=== PATIENT | male | born 1970 | race Caucasian/White ===

== ENCOUNTER → 2019-06-14 | Day surgery (SDC) | payer BC ==
[~2019-06-14] MED LIST: FENTANYL CITRATE/PF 100MCG/2 ML INJ ONE; LIDOCAINE HCL 2% LOCAL INJ 5 ML SDV VIAL INJ ONE; MIDAZOLAM HCL 2 MG/2 ML VIAL ONE; OMEPRAZOLE40 MG PO; PROPOFOL IV EMULSION 10 MG/ML 20 ML VIAL ONE
[2019-06-14 11:00] VITALS: BP 106/86
--- NOTE | 2019-06-14 11:51 | Operative Report ---
DATE OF PROCEDURE: 06/14/2019 SURGEON: Tyree Soto MD PROCEDURE PERFORMED: Colonoscopy. PREOPERATIVE DIAGNOSIS: Proctalgia. POSTOPERATIVE DIAGNOSES: Colon polyps, diverticulosis, normal anorectal region. PREOPERATIVE MEDICATIONS: Consisted of MAC sedation. PROCEDURE IN DETAIL: Using [employer] video colonoscope was inserted in the patient's rectum and advanced without difficulty to the level of the cecum. As we withdrew the scope back into the ascending colon, a 1 cm sized benign polyp was seen and removed with the electrical snare cautery as we get the colonoscope back down to the descending colon, began taking up scattered diverticula, which extended down into the sigmoid colon. No evidence of diverticulitis. In the sigmoid colon was a 4 mm size sessile polyp, which was removed with hot biopsy forceps. The colonoscope was withdrawn back into the rectum in the anal canal. Rectum was normal. There was no evidence of any fissures. No evidence of any hemorrhoids. The colonoscope was withdrawn from the patient's rectum and the procedure was ended. Tyree Soto MD SAF/MODL /[id number]
== END | disposition home or self-care (01) ==
LOC: OR 07:50
PROVIDERS: ATTEND Internal Medicine Gastroenterology
DX: K62.89 Other specified diseases of anus and rectum (principal); K63.5 Polyp of colon; K57.30 Diverticulosis of large intestine without perforation or abscess without bleeding; K21.9 Gastro-esophageal reflux disease without esophagitis; K60.2 Anal fissure, unspecified; K59.04 Chronic idiopathic constipation; K64.9 Unspecified hemorrhoids; F17.210 Nicotine dependence, cigarettes, uncomplicated; Z01.810 Encounter for preprocedural cardiovascular examination
CPT/HCPCS: 45384; 45385; 93005; J2001; J2250; J2704; J3010; 45378

== ENCOUNTER → 2020-02-15 | Day surgery (SDC) | payer BC, OTHER ==
[2020-02-11 14:06] LABS: BASOPHILS # (AUTO) 0.1 (0.0-0.1); EOSINOPHILS # (AUTO) 0.2 (0.0-0.4); EOSINOPHILS % 1.7 % (0.0-6.0); HEMATOCRIT 46.2 % (38.2-49.6); HEMOGLOBIN 15.2 g/dL (14.0-18.0); LYMPHOCYTES # (AUTO) 3.1 (1.0-3.2); LYMPHOCYTES % 30.4 % (18.0-39.1); MEAN CORPUSCULAR HEMOGLOBIN 30.4 pg (28-32); MEAN CORPUSCULAR HGB CONC 32.9 g/dL (31-35); MEAN CORPUSCULAR VOLUME 92.4 fL (81-99); MONOCYTES # (AUTO) 0.8 (0.2-0.8); MONOCYTES % 7.7 % (4.4-11.3); NEUTROPHILS # (AUTO) 6.1 (2.1-6.9); NEUTROPHILS % 58.7 % (38.7-80.0); PLATELET COUNT 366 x10e3/uL (140-360); RED CELL DISTRIBUTION WIDTH 12.6 % (11.7-14.4)
--- NOTE | 2020-02-11 14:12 | Diagnostic Imaging Report ---
EXAMINATION: CHEST 2 VIEWS INDICATION: Pre-operative COMPARISON: None FINDINGS: LINES/TUBES:None LUNGS:The lungs are well-inflated. No focal consolidation or pulmonary edema. PLEURA:No pleural effusion or pneumothorax. MEDIASTINUM:The cardiomediastinal silhouette appears normal in size and shape. BONES/SOFT TISSUES:No acute osseous injury. ABDOMEN:No free air under the diaphragm. IMPRESSION: No focal pneumonia or pulmonary edema. Signed by: Maikel Farley MD on 02/11/2020 2:09 PM
[2020-02-11 14:24] LABS: ALANINE AMINOTRANSFERASE 16 IU/L (0-55); ALBUMIN 3.8 g/dL (3.5-5.0); ALBUMIN/GLOBULIN RATIO 1.2 (0.8-2.0); ALKALINE PHOSPHATASE 50 IU/L (40-150); ANION GAP 11.5 mmol/L (8-16); BLOOD UREA NITROGEN 8 mg/dL (7-26); BUN/CREATININE RATIO 10 (6-25); CALCIUM 9.3 mg/dL (8.4-10.2); CARBON DIOXIDE 31 mmol/L (22-29); CHLORIDE 104 mmol/L (98-107); CREATININE, SERUM 0.84 mg/dL (0.72-1.25); EST GLOMERULAR FILTRATION RATE > 60 ML/MIN (60-); GLUCOSE 96 mg/dL (74-118); POTASSIUM 4.5 mmol/L (3.5-5.1); SODIUM 142 mmol/L (136-145)
[~2020-02-15] MED LIST changes: +ACETAMINOPHEN 1000 MG/100 ML 100 ML IV ONE; +ACETAMINOPHEN 1000 MG/100 ML IV ONE; +BUPIVACAINE HCL 0.5% INJ 30 ML VIAL INJ ONE; +CEFAZOLIN SOD 1 GM/NS 50ML 100 ML IV ONE; +CIPRO500 MG PO; +DESFLURANE 240 ML BTL INH ONE; +DEXAMETHASONE SOD PHOS INJ 4 MG/ML VIAL ONE; +EPHEDRINE SULFATE INJ 50 MG/ML VIAL ONE; +GLYCOPYRROLATE INJ 0.2 MG/ML VIAL ONE; +KETOROLAC TROMETHAMINE 30 MG/ML VIAL ONE; -MIDAZOLAM HCL 2 MG/2 ML VIAL ONE; +NEOSTIGMINE 1 MG/ML 10ML VIAL ONE; +ONDANSETRON HCL INJ 2MG/ML 2ML 2 MG/ML VIAL ONE; +ROCURONIUM BROMIDE 10 MG/ML 5ML VIAL IV ONE
[2020-02-15 14:50] VITALS: BP 106/61
--- NOTE | 2020-02-15 18:23 | Operative Report ---
DATE OF PROCEDURE: 02/15/2020 SURGEON: Kaushal Walsh MD PREOPERATIVE DIAGNOSIS: Bilateral inguinal hernia. POSTOPERATIVE DIAGNOSIS: Bilateral inguinal hernia. OPERATIVE PROCEDURE: Laparoscopic bilateral inguinal hernia repair with mesh. ANESTHESIA: General; Dr. Draper. INDICATION: A 50-year-old male with bilateral inguinal hernia, who consented for repair. Attendant risks discussed. PROCEDURE FINDINGS: Bilateral direct inguinal hernia. DESCRIPTION OF PROCEDURE: The patient was brought to the OR, intubated. The abdomen was prepped and draped in sterile fashion. Infraumbilical incision was made and 11 mm port inserted. Insufflation then began under direct vision, other port site placed in the lateral border of the rectus muscle at the level of the umbilicus. Laparoscopic examination revealed bilateral direct inguinal hernia. We then proceeded to take down the peritoneal flap on the right side starting at the iliac crest laterally and progressing towards the medial umbilical ligament staying 1 cm above the internal ring. The hernia sac was dissected off the abdominal wall using blunt dissection, exposing the direct and indirect inguinal hernias. At this point, a right medium size 3D polypropylene mesh was deployed into the preperitoneal space and anchored to the abdominal wall with absorbable tacks. The peritoneal flap was closed with Ligaclips. In a similar fashion, a peritoneal flap was raised on the left side from the iliac crest laterally to the medial umbilical ligament, medially staying above the internal ring. The hernia sac and peritoneal flap are raised in a caudad direction, it from the abdominal wall and the spermatic cord to the level of iliac crest. A left-sided 3D polypropylene mesh was similarly deployed and anchored to the abdominal wall with absorbable stacked tacks, staying above the iliopubic tract. Ligaclips was used to close the peritoneal flap. Hemostasis achieved. Ports removed under direct vision. Fascia closure 0 Vicryl. Skin was closed with subcuticular stitch. The patient was extubated and transported to recovery room. BLOOD LOSS: 5 mL. Kaushal Walsh MD DNL/MODL /[id number]
== END | disposition home or self-care (01) ==
LOC: OR 10:07
PROVIDERS: ATTEND Surgery
DX: K40.20 Bilateral inguinal hernia, without obstruction or gangrene, not specified as recurrent (principal); J44.9 Chronic obstructive pulmonary disease, unspecified; K21.9 Gastro-esophageal reflux disease without esophagitis; R00.1 Bradycardia, unspecified; F17.210 Nicotine dependence, cigarettes, uncomplicated; Z01.810 Encounter for preprocedural cardiovascular examination; Z01.812 Encounter for preprocedural laboratory examination; Z01.818 Encounter for other preprocedural examination; Z11.59 Encounter for screening for other viral diseases
CPT/HCPCS: 36415; 49650; 71046; 80053; 85025; 93005; C1781 ×2; J0131; J0690; J1100; J1885; J2001; J2405; J2704; J2710; J3010; U0002

== ENCOUNTER → 2020-03-18 | Outpatient (CLI) | payer BC, OTHER ==
[~2020-03-18] MED LIST changes: -ACETAMINOPHEN 1000 MG/100 ML 100 ML IV ONE; -ACETAMINOPHEN 1000 MG/100 ML IV ONE; -BUPIVACAINE HCL 0.5% INJ 30 ML VIAL INJ ONE; -CEFAZOLIN SOD 1 GM/NS 50ML 100 ML IV ONE; -DESFLURANE 240 ML BTL INH ONE; -DEXAMETHASONE SOD PHOS INJ 4 MG/ML VIAL ONE; +DIATRIZOATE MEGL/DIATRIZOA SOD 30 ML BTL PO ONE; -EPHEDRINE SULFATE INJ 50 MG/ML VIAL ONE; -FENTANYL CITRATE/PF 100MCG/2 ML INJ ONE; -GLYCOPYRROLATE INJ 0.2 MG/ML VIAL ONE; +IOPAMIDOL 370 MG/ML 200 ML INFUS..BTL INJ ONE; -KETOROLAC TROMETHAMINE 30 MG/ML VIAL ONE; -LIDOCAINE HCL 2% LOCAL INJ 5 ML SDV VIAL INJ ONE; -NEOSTIGMINE 1 MG/ML 10ML VIAL ONE; -ONDANSETRON HCL INJ 2MG/ML 2ML 2 MG/ML VIAL ONE; -PROPOFOL IV EMULSION 10 MG/ML 20 ML VIAL ONE; -ROCURONIUM BROMIDE 10 MG/ML 5ML VIAL IV ONE; +SODIUM CHLORIDE 0.9% 50ML 50 ML ONE
--- NOTE | 2020-03-18 16:12 | Diagnostic Imaging Report ---
EXAM: CT Pelvis WITH intravenous contrast INDICATION: Perirectal abscess COMPARISON: None. TECHNIQUE: Pelvis were scanned utilizing a multidetector helical scanner from the iliac crest to the pubic symphysis following administration of IV contrast. Coronal and sagittal reformations were obtained. Routine protocol was performed. IV CONTRAST: 100cc Isovue 370. ORAL CONTRAST: Gastrografin RADIATION DOSE: Total DLP: 126 mGy*cm COMPLICATIONS: None FINDINGS: LINES and TUBES: None. GI TRACT: Oral contrast opacifies the colon. No abnormal bowel thickening. No bowel obstruction. No CT evidence of perirectal abscess. Reported history of appendectomy. PELVIC ORGANS/BLADDER: Unremarkable. LYMPH NODES: No lymphadenopathy. VESSELS: Mild atherosclerotic calcifications of the nonaneurysmal distal abdominal aorta and major branches. PERITONEUM / RETROPERITONEUM: No free air or fluid. BONES: Unremarkable. SOFT TISSUES: Postoperative findings of bilateral inguinal hernia repair. IMPRESSION: No CT evidence of perirectal abscess. Signed by: Maikel Farley MD on 03/18/2020 4:08 PM
== END ==
LOC: CT 13:33
PROVIDERS: ATTEND Internal Medicine Gastroenterology
DX: K61.1 Rectal abscess (principal)
CPT/HCPCS: 72193; Q9967

== ENCOUNTER → 2020-04-18 | Day surgery (SDC) | payer BC, OTHER ==
[~2020-04-18] MED LIST changes: -DIATRIZOATE MEGL/DIATRIZOA SOD 30 ML BTL PO ONE; +FENTANYL CITRATE/PF 100MCG/2 ML INJ ONE; +FINASTERIDE5 MG PO; -IOPAMIDOL 370 MG/ML 200 ML INFUS..BTL INJ ONE; +LIDOCAINE HCL 2% LOCAL INJ 5 ML SDV VIAL INJ ONE; +METOCLOPRAMIDE HCL 10 MG/2ML VIAL ONE; +MIDAZOLAM HCL 2 MG/2 ML VIAL ONE; +PANTOPRAZOLE 40 MG 10ML VIAL ONE; +PANTOPRAZOLE SO40 MG PO; +PROPOFOL IV EMULSION 10 MG/ML 20 ML VIAL ONE
[2020-04-18 09:00] VITALS: BP 104/79
--- NOTE | 2020-04-18 11:39 | Operative Report ---
DATE OF PROCEDURE: 04/18/2020 SURGEON: Leroy Watson MD PROCEDURE: An EGD with polypectomy and biopsies and esophageal dilatation. INDICATIONS FOR EGD: Upper abdominal pain, nausea, history of black stools, and dysphagia. MEDICATIONS: The patient was done under MAC. Please see anesthesiologist's note. PROCEDURE IN DETAIL: With the patient in left lateral decubitus position, the flexible fiberoptic Olympus gastroscope was introduced into the esophagus under direct visualization without any difficulty. There was some patchy erythema noted in distal esophagus. Esophagus was then dilated to size 52-[place] Mark. The scope was then advanced with ease into the stomach. Mucosa overlying the antrum and the body revealed some diffuse erythema and mild to moderate edema, and biopsies were obtained, sent to stain for H. pylori. A minute hyperplastic-appearing polyp was noted in the proximal body of the stomach and that was partially excised with the cold biopsy forceps. The pylorus was of normal contour and shape, it was intubated with ease and the scope was advanced all the way to the second portion of the duodenum. Biopsies were obtained from the proximal second portion and the duodenal bulb to rule out sprue. The scope was then withdrawn back into the stomach and retroflexed and mucosa overlying the fundus and the cardia appeared to be within normal limits. The scope was then straightened out. It was subsequently withdrawn. The patient tolerated the procedure well. IMPRESSION: 1. Distal esophagitis, mild. 2. Esophagus dilated to size 52-[place] Mark. 3. Gastritis, biopsied. Biopsies sent to stain for H pylori. 4. Gastric polyp, body, partially excised with the cold biopsy forceps. 5. Rule out sprue. PLAN: Follow up histology. Continue Protonix 40 mg one p.o. q.a.m. a.c. Leroy Watson MD [facility] [place] /[id number]
== END | disposition home or self-care (01) ==
LOC: OR 05:47
PROVIDERS: ATTEND Internal Medicine Gastroenterology
DX: K29.70 Gastritis, unspecified, without bleeding (principal); K20.9 Esophagitis, unspecified; K31.7 Polyp of stomach and duodenum; K21.9 Gastro-esophageal reflux disease without esophagitis; R03.0 Elevated blood-pressure reading, without diagnosis of hypertension; F17.210 Nicotine dependence, cigarettes, uncomplicated; Z01.812 Encounter for preprocedural laboratory examination; Z11.59 Encounter for screening for other viral diseases; Z80.0 Family history of malignant neoplasm of digestive organs
CPT/HCPCS: 43239; 43450; C9113; J2001; J2250; J2704; J2765; J3010; U0002

== ENCOUNTER → 2021-03-13 | Outpatient (CLI) | payer BC ==
[~2021-03-13] MED LIST changes: -FENTANYL CITRATE/PF 100MCG/2 ML INJ ONE; -LIDOCAINE HCL 2% LOCAL INJ 5 ML SDV VIAL INJ ONE; -METOCLOPRAMIDE HCL 10 MG/2ML VIAL ONE; -MIDAZOLAM HCL 2 MG/2 ML VIAL ONE; -PANTOPRAZOLE 40 MG 10ML VIAL ONE; -PROPOFOL IV EMULSION 10 MG/ML 20 ML VIAL ONE; -SODIUM CHLORIDE 0.9% 50ML 50 ML ONE
== END ==
LOC: US 14:36
PROVIDERS: ATTEND Internal Medicine Gastroenterology
DX: R10.11 Right upper quadrant pain (principal); N28.1 Cyst of kidney, acquired
CPT/HCPCS: 76705

== ENCOUNTER 2024-03-01 05:37 | Observation (INO) | payer BC, OTHER ==
[2024-02-28 15:50] LABS: BASOPHILS # (AUTO) 0.1 (0.0-0.1); BASOPHILS % 0.5 % (0.0-1.0); EOSINOPHILS # (AUTO) 0.2 (0.0-0.4); EOSINOPHILS % 1.9 % (0.0-6.0); HEMATOCRIT 50.6 % (38.2-49.6); HEMOGLOBIN 16.4 g/dL (14.0-18.0); LYMPHOCYTES # (AUTO) 3.9 (1.0-3.2); LYMPHOCYTES % 34.7 % (18.0-39.1); MEAN CORPUSCULAR HEMOGLOBIN 30.8 pg (28-32); MEAN CORPUSCULAR HGB CONC 32.4 g/dL (31-35); MEAN CORPUSCULAR VOLUME 94.9 fL (81-99); MONOCYTES % 9.2 % (4.4-11.3); NEUTROPHILS % 53.1 % (38.7-80.0); PLATELET COUNT 431 x10e3/uL (140-360); RED BLOOD COUNT 5.33 x10e6/uL (4.3-5.7); RED CELL DISTRIBUTION WIDTH 13.1 % (11.7-14.4); WHITE BLOOD COUNT 11.32 x10e3/uL (4.8-10.8)
[2024-02-28 16:03] LABS: INR 0.82; PROTHROMBIN TIME 11.9 seconds (11.9-14.5)
[2024-02-28 16:04] LABS: PARTIAL THROMBOPLASTIN TIME 28.6 seconds (23.8-35.5)
[2024-02-28 16:08] LABS: ANION GAP 14.1 mmol/L (8-16); CALCIUM 9.3 mg/dL (8.4-10.2); CREATININE, SERUM 1.13 mg/dL (0.72-1.25); POTASSIUM 4.1 mmol/L (3.5-5.1)
[~2024-03-01 05:37] MED LIST changes: +CYCLOBENZAPRINE10 MG PO; +HYDROCODON-ACE1 EA12 PO; +KETOROLAC PO; +VALACYCLOVIR500 MG PO
[2024-03-01] MEDS ORDERED: LACTATED RINGER'S 1,000 ML ONE (06:32)
[2024-03-01] MEDS ORDERED: CEFAZOLIN SODIUM 2 GM ONE (06:32)
[2024-03-01] MEDS ORDERED: Vancomycin IV 1 GM VIAL ONE (07:05)
[2024-03-01] MEDS ORDERED: LIDOCAINE 1% W/EPINEPHRINE 20 ML VIAL ONE (07:05)
[2024-03-01] MEDS ORDERED: THROMBIN FOR SOLN 5,000 UNIT VIAL ONE (07:05)
[2024-03-01] MEDS ORDERED: MAGNESIUM/ALUMINUM/SIMETHICONE 30 ML UDC PO PRN (08:45)
[2024-03-01] MEDS ORDERED: LACTATED RINGER'S 1,000 ML IV SCH (08:45)
[2024-03-01] MEDS ORDERED: ONDANSETRON HCL INJ 2MG/ML 2ML 2 MG/ML VIAL IV PRN (08:45)
[2024-03-01] MEDS ORDERED: PROMETHAZINE HCL (IM) 25 MG/ML VIAL IM PRN (08:45)
[2024-03-01] MEDS ORDERED: OXYCODONE/ACETAMINOPHEN 5-325 1 EACH TABLET PO PRN (08:45)
[2024-03-01] MEDS ORDERED: HYDROMORPHONE 2MG/ML IV PRN (08:45)
[2024-03-01] MEDS ORDERED: CARISOPRODOL 350 MG TAB PO PRN (08:45)
[2024-03-01] MEDS ORDERED: ACETAMINOPHEN 325 MG TAB PO PRN (08:45)
[2024-03-01] MEDS ORDERED: ZOLPIDEM TARTRATE 5 MG TAB PO PRN (08:45)
[2024-03-01] MEDS ORDERED: Morphine 10mg syringe 10 MG/ML INJ IM PRN (08:45)
[2024-03-01] MEDS ORDERED: PANTOPRAZOLE SOD 40 MG TABEC PO SCH (09:00)
[2024-03-01 12:10] VITALS: BP 135/80; PULSE 84; RESP 16; O2SAT 95
[2024-03-01] MEDS ORDERED: SEVOFLURANE INHAL SOLN 250 ML PEN BTL ONE (12:16)
[2024-03-01] MEDS ORDERED: ACETAMINOPHEN 1000 MG/100 ML IV ONE (12:16)
[2024-03-01] MEDS ORDERED: PHENYLEPHRINE HCL 1% 10 MG/ML VIAL ONE (12:16)
[2024-03-01] MEDS ORDERED: ROCURONIUM BROMIDE 10 MG/ML 5ML VIAL IV ONE (12:16)
[2024-03-01] MEDS ORDERED: DEXMEDETOMIDINE HCL 200 MCG/2 ML VIAL ONE (12:16)
[2024-03-01] MEDS ORDERED: SUGAMMADEX SODIUM 200 MG/2 ML VIAL IV ONE (12:16)
[2024-03-01] MEDS ORDERED: PROPOFOL IV EMULSION 10 MG/ML 20 ML VIAL ONE (12:16)
[2024-03-01] MEDS ORDERED: SODIUM CHLORIDE 0.9% INJ 100 ML BAG ONE (12:16)
[2024-03-01] MEDS ORDERED: DEXAMETHASONE SOD PHOS INJ 4 MG/ML SDV ONE (12:16)
[2024-03-01] MEDS ORDERED: LIDOCAINE HCL 2% LOCAL INJ 5 ML SDV VIAL INJ ONE (12:16)
[2024-03-01] MEDS ORDERED: ONDANSETRON HCL INJ 2MG/ML 2ML 2 MG/ML VIAL ONE (12:16)
[2024-03-01] MEDS ORDERED: FENTANYL CITRATE/PF 100MCG/2 ML INJ ONE (12:27)
[2024-03-01] MEDS ORDERED: MIDAZOLAM HCL 2 MG/2 ML VIAL ONE (12:27)
== END 2024-03-01 12:20 | disposition home or self-care (01) ==
LOC: OR 05:37 → PACU V 08:36
PROVIDERS: ADMIT Neurological Surgery; ATTEND Neurological Surgery
DX: M51.16 Intervertebral disc disorders with radiculopathy, lumbar region (principal); M48.061 Spinal stenosis, lumbar region without neurogenic claudication; K21.9 Gastro-esophageal reflux disease without esophagitis; F17.200 Nicotine dependence, unspecified, uncomplicated; Z01.810 Encounter for preprocedural cardiovascular examination; Z01.812 Encounter for preprocedural laboratory examination; Z01.818 Encounter for other preprocedural examination; Z79.899 Other long term (current) drug therapy
CPT/HCPCS: 36415; 63047; 71046; 72020; 80048; 85025; 85610; 85730; 86850; 86900; 88304; 93005; G0378; J0131; J1100; J2001; J2250; J2371; J2405; J2704; J3010; J3370; J7050; J7121; 88311